=== PATIENT | male | born 1985 | race Caucasian/White ===

== ENCOUNTER → 2021-02-04 | Outpatient (CLI) | payer OTHER ==
[~2021-02-04] MED LIST: PROTONIX40 M2 PO
== END ==
LOC: LAB 09:44
PROVIDERS: ATTEND Student in an Organized Health Care Education/Training Program
DX: Z01.812 Encounter for preprocedural laboratory examination (principal); Z20.822 Contact with and (suspected) exposure to COVID-19

== ENCOUNTER → 2021-02-06 | Outpatient (CLI) | payer OTHER ==
[~2021-02-06] VITALS: Ht 188 cm; Wt 85.7 kg
--- NOTE | 2021-02-08 08:14 | P ---
[facility] [place] [address] PROCEDURE REPORT Name: SHRAVAN MELENDEZ Room #: REG [facility].#: [id number] Admission: 02/06/21 Attend Phys: Franck England Discharge: Date of : 85 Report #: [id number] THIS REPORT FOR: cc: Jolynn Collier MD, Kerry B. MD McElhinney, Christian C. MD ~ cc: Jolynn Collier MD DATE OF SERVICE: 02/06/2021 PROCEDURE PERFORMED: Colonoscopy with polypectomy. HISTORY OF PRESENT ILLNESS: The patient is a 35-year-old male with a history of intermittent bright red blood per rectum and feeling of incomplete evacuation. No previous history of colonoscopy. No family history of colon cancer or inflammatory bowel disease. DESCRIPTION OF PROCEDURE: The risks and benefits of the procedure were explained to the patient, those risks including but not limited to bleeding, perforation and the risk of sedation. He understood these risks and gave informed consent. Sedation was given using propofol per anesthesia. Next, a digital rectal exam was initially performed, which was normal. Next, using a standard Olympus colonoscope, the scope was placed in the patient's anus and advanced under direct vision to the cecum. The overall prep was excellent. The cecum and ileocecal valve were normal in appearance. The terminal ileum was intubated and normal in appearance. Ascending, transverse, descending and sigmoid colon were all normal. In the rectum, an 8 mm pedunculated polyp was noted. This was removed by snare cautery, otherwise normal. On retroflexion, no abnormalities were noted. Close examination of the anal canal was normal. The scope was then withdrawn and the procedure terminated. The patient tolerated the procedure well. IMPRESSION: 1. Rectal polyp. 2. Otherwise, normal colonoscopy. RECOMMENDATIONS: 1. Rectal polyp potentially could cause intermittent bright red blood per rectum. We would recommend observing, now that has been removed. If bleeding continues, consider Analpram in the future or further workup. 2. Repeat colonoscopy in 5 years. [facility] [address] [place] [address] PROCEDURE REPORT Name: SHRAVAN MELENDEZ Room #: REG [facility] Sara.#: [id number] Admission: 02/06/21 Attend Phys: Franck England Discharge: Date of : 85 Report #: [id number] Thank you for allowing me to participate in his care. <ELECTRONICALLY SIGNED> By: Franck Morrison MD 02/08/21 0814 [id number] [id number] Franck Morrison MD /nt
--- NOTE | 2021-02-08 08:14 | P ---
[facility] [place] [address] PROCEDURE REPORT Name: SHRAVAN MELENDEZ Room #: REG [facility]#: [id number] Admission: 02/06/21 Attend Phys: Franck England Discharge: Date of : 85 Report #: [id number] THIS REPORT FOR: cc: Jloynn Collier MD, Kerry B. MD McElhinney, Christian C. MD ~ cc: Jolynn Collier MD DATE OF SERVICE: 02/06/2021 PROCEDURE PERFORMED: Upper endoscopy with biopsies. HISTORY OF PRESENT ILLNESS: The patient is a 35-year-old male with intermittent midepigastric abdominal discomfort. He also reports difficulty with bowel movements with a feeling of incomplete evacuation as well as bright red blood per rectum at times. Plan is for EGD and colonoscopy today. DESCRIPTION OF PROCEDURE: The risks and benefits of the procedure were explained to the patient, those risks including but not limited to bleeding, perforation and the risk of sedation. He understood these risks and gave informed consent. Sedation was given using propofol per anesthesia. Next, using a standard Olympus upper endoscope, the scope was placed in the patient's mouth and advanced under direct vision through the esophagus, stomach and into the second portion of the duodenum. The larynx was normal in appearance. The esophagus was normal throughout. The GE junction was normal. Overall, the gastric mucosa was normal. Biopsies were obtained to rule out H. pylori. The pylorus was normal and patent. The duodenal bulb, first and second portion were all normal. Biopsies were obtained to rule out the possibility of celiac sprue. The scope was then withdrawn and the procedure terminated. The patient tolerated the procedure well. IMPRESSION: Normal upper endoscopy. RECOMMENDATIONS: 1. Await biopsy results. 2. We will proceed with colonoscopy next today. Thank you for allowing me to participate in his care. <ELECTRONICALLY SIGNED> By: Franck Morrison MD 02/08/21 0814 1109 2159 Franck Morrison MD /nt
--- NOTE | 2021-02-08 18:10 | PATH ---
[facility] [place] [address] PATHOLOGY RPT PROCEDURE Name: BRANDO RODRIGUEZ Room #: REG Nicole Ruiz.#: [id number] Admission: 02/06/21 Date of : 85 Discharge: Report #: [id number] Path Case #: [id number] [facility] Accession Number: [id number] . 01 Material submitted: . PART A: duodenum - DUODENAL BIOPSY R/O CELIAC SPRUE PART B: gastrointestinal site - GASTRIC BIOPSY R/O H. PYLORI PART C: rectum - RECTAL POLYP . 01 Clinical history: . EGD/COLONOSCOPY BLOOD IN STOOL GASTRIC BIOPSY . . 02 Diagnosis: A. Small bowel mucosa, duodenum rule out celiac sprue, endoscopic biopsy: - No diagnostic abnormalities; negative for villous blunting or increase in intraepithelial lymphocytes. . B. Gastric mucosa, gastric rule out H. pylori, endoscopic biopsy: - Moderate reactive gastropathy. - Negative for intestinal metaplasia or atrophy. - Negative for Helicobacter pylori (properly controlled immunohistochemical stain performed). . C. Polyp, rectal polyp, endoscopic biopsy: - Tubular adenoma. - Negative for high grade dysplasia. (IUV/db; 02/08/2021) [facility] 02/08/2021 1347 Local . 02 Electronically signed: . Eliane Irene MD, Pathologist NPI- [id number] . 01 Gross description: . A. The specimen is received in formalin, labeled "Brando Rodriguez, duodenum BX". Received are 5 segments of pale jones tissue ranging in size from 0.2 to 0.5 cm in maximum dimensions. The specimen is submitted entirely in cassette A1. . B. The specimen is received in formalin, labeled "Brando Rodriguez gastric BX". Received are 4 segments of pale jones tissue ranging in size from 0.3 to 0.7 cm in maximum dimensions. The specimen is submitted entirely in cassette B1[place] [address] PATHOLOGY RPT PROCEDURE Name: BRANDO RODRIGUEZ Room #: REG CLI [facility].#: [id number] Admission: 02/06/21 Date of : 85 Discharge: Report #: [id number] Path Case #: [id number] C. The specimen is received in formalin, labeled "Brando Rodriguez, rectal polyp". Received are 3 segments of pale jones tissue ranging in size from 0.4 to 0.6 cm in maximum dimensions. The specimen is submitted entirely in cassette C1.([facility]; 02/07/2021) [facility] 02/07/2021 1109 Local . 02 Pathologist provided ICD-10: K31.9, D12.8 . 02 CPT . 164627, 627394, 486807, [id number] Specimen Comment: A courtesy copy of this report has been sent to [phone] Specimen Comment: Report sent to / DR FELIZ Performed at: [address], [place] [id number] MD Albert Rosenberg MD Phone: [phone] Performed at: [address] [id number] MD Eliane Irene MD Phone: [phone]
== END | disposition home or self-care (01) ==
LOC: GI
PROVIDERS: ATTEND Specialist
DX: K92.1 Melena (principal); R10.13 Epigastric pain; D12.8 Benign neoplasm of rectum; K31.9 Disease of stomach and duodenum, unspecified; Z98.890 Other specified postprocedural states; Z79.899 Other long term (current) drug therapy; Z87.891 Personal history of nicotine dependence
CPT/HCPCS: 62110; 62900